=== PATIENT | male | born 1990 | race Two or more races ===

== ENCOUNTER 2019-01-18 21:04 | Emergency (ER) | payer SELFPAY ==
[~2019-01-18] VITALS: Ht 177.8 cm; Wt 120.1 kg
[2019-01-18 21:15] VITALS: BP 122/76
[2019-01-18] MEDS ORDERED: OXYMETAZOLINE NASAL SPRAY 0.05%,30ML ONE (21:37)
[2019-01-18 21:56] LABS: BASOPHILS # (AUTO) 0.05 x10^3/uL (0-0.1); BASOPHILS % (AUTO) 0 % (0-1); EOSINOPHILS # (AUTO) 0.14 x10^3/uL (0-0.4); EOSINOPHILS % (AUTO) 1 % (1-7); LYMPHOCYTES # (AUTO) 2.15 x10^3/uL (1-3.4); LYMPHOCYTES % (AUTO) 19 % (22-44); MD NO; MEAN CORPUSCULAR HEMOGLOBIN 28.7 pg (27.5-34.5); MEAN CORPUSCULAR HGB CONC 32.8 g/dL (33.2-36.2); MEAN CORPUSCULAR VOLUME 87.7 fL (81-97); MEAN PLATELET VOLUME 8.3 fL (7.4-10.4); MONOCYTES % (AUTO) 7 % (2-9); NEUTROPHILS # (AUTO) 7.93 x10^3/uL (1.8-6.8); NEUTROPHILS % (AUTO) 72 % (42-75); PLATELET COUNT 277 x10^3/uL (130-400); RED CELL DISTRIBUTION WIDTH 13.3 % (9.4-14.8)
[2019-01-18] MEDS ORDERED: OXYMETAZOLINE NASAL SPRAY 0.05%,30ML NAS ONE (22:00)
== END 2019-01-18 22:19 | disposition home or self-care (01) ==
LOC: ED 21:43
DX: R04.0 Epistaxis (principal)
CPT/HCPCS: 36415; 85025; 99283